=== PATIENT | female | born 1960 | race Caucasian/White ===

== ENCOUNTER → 2016-11-09 | Outpatient (CLI) | payer BC ==
--- NOTE | 2016-11-10 10:36 | MM ---
Reason for exam: screening (asymptomatic). Baseline mammogram. History: Patient is postmenopausal and has history of other cancer at age 30. Took hormonal contraceptives for 10 years. Physical Findings: Nurse did not find any significant physical abnormalities on exam. MG Screening Mammo w CAD Bilateral CC and MLO view(s) were taken. There are scattered fibroglandular densities. Finding #1: There are two 5 mm equal density (isodense), oval masses in the right breast. Finding #2: There are typically benign calcifications in the right breast. ASSESSMENT: Incomplete: need additional imaging evaluation, BI-RAD 0 RECOMMENDATION: Special view mammogram and ultrasound of the right breast. [facility] will attempt to contact patient to return for supplemental views and ultrasound.
== END | disposition home or self-care (01) ==
LOC: RADMAMWWP 13:23
PROVIDERS: ATTEND Family Medicine
DX: Z12.31 Encounter for screening mammogram for malignant neoplasm of breast (principal)

== ENCOUNTER → 2016-11-23 | Outpatient (CLI) | payer BC ==
--- NOTE | 2016-11-24 07:22 | MM ---
Reason for exam: additional evaluation requested from abnormal screening. Last mammogram was performed less than 1 month ago. History: Patient is postmenopausal and has history of other cancer at age 30. Took hormonal contraceptives for 10 years. Physical Findings: Breast exam preformed at baseline screening. MG Work Up Mamm w CAD RT LM and spot compression CC view(s) were taken of the right breast. Prior study comparison: November 09, 2016, bilateral MG screening mammo w CAD. There are scattered fibroglandular densities. Two circumscribed isodense 5mm nodules redemonstrated centrally inferior right breast. A 6 month follow up recommended. These results were verbally communicated with the patient and result sheet given to the patient on 11/23/16. ASSESSMENT: Probably benign, BI-RAD 3 RECOMMENDATION: Follow-up diagnostic mammogram of the right breast in 6 months.
== END | disposition home or self-care (01) ==
LOC: RADMAMWWP 14:40
PROVIDERS: ATTEND Family Medicine
DX: R92.8 Other abnormal and inconclusive findings on diagnostic imaging of breast (principal)

== ENCOUNTER → 2017-03-20 | Outpatient (CLI) | payer BC ==
--- NOTE | 2017-03-21 08:11 | WWHP ---
CHIEF COMPLAINT: The patient is here for her routine gynecologic exam. HPI: This is a 56-year-old G1, P1 with an LMP of 2008. She states it has been about 10 years since her last pelvic exam. She is without gynecologic complaints and denies any postmenopausal bleeding. PAST MEDICAL HISTORY: Chronic hypertension and hypothyroidism. MEDICATIONS: 1. Trazodone 100 mg at bedtime. 2. Amlodipine with benazepril 5/10 mg 1 daily. 3. Levothyroxine 75 mcg daily. ALLERGIES TO MORPHINE which caused pruritus and hives and AZITHROMYCIN, which caused heart racing. PAST SURGICAL HISTORY: Gastric bypass, cholecystectomy, left knee replacement surgery, partial thyroidectomy and section in the past. Colonoscopy was done in 2016. PAST OB HISTORY: One section. 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 Her does have a history of herpes but this well-controlled. SOCIAL HISTORY: She denies tobacco and drug use and has about 4 alcoholic drinks per week. She has been since 1997 and works at [employer]. She has 2 stepchildren. FAMILY HISTORY: Father had Parkinson disease. Mother had CHF. Several aunts and grandmother have hypertension. A brother and sister have diabetes. REVIEW OF SYSTEMS: She has lost about 20 pounds during the last year with diet. She denies respiratory, cardiac, or GI problems. PHYSICAL EXAM: Blood pressure 174/83. Height 5 feet 1-1/2 inches. Weight 165 pounds. Temperature 96.4, pulse 101. This a well-developed, well-nourished white female who is alert and oriented x3 in no acute distress. HEENT is within normal limits. NECK: Supple without mass or thyromegaly. CHEST AND LUNGS: Clear to auscultation. HEART: Mild tachycardia. Breasts are without mass or discharge. Axillary exam is negative for adenopathy. BACK: Negative for CVA tenderness. ABDOMEN: Soft, nontender, without palpable masses. PELVIC EXAM: External genitalia reveals mild atrophy without lesions. Cervix and vagina reveal mild atrophy without lesions. There is no evidence of prolapse. The uterus is midposition, nongravid size and nontender. There are no palpable adnexal masses or tenderness. Rectovaginal exam is for mass or tenderness and is negative for occult blood. EXTREMITIES: Nontender. IMPRESSION: 1. A 56-year-old menopausal female with normal gynecologic exam. 2. Elevated blood pressure with history of chronic hypertension. PLAN: 1. Pap smear was performed. 2. Self breast examination was discussed. 3. The patient had a mammogram in 11/21. A right-sided diagnostic mammogram was recommended in 6 months and an order slip was given to patient for this. She will do this in 05/21. 4. We discussed her elevated blood pressure. She states she did not take her blood pressure medicine today. She was advised to take this as soon as possible. She will do home blood pressure checks since she does have a blood pressure cuff. She will follow up with Dr. Byrd for blood pressure elevations. 5. Osteoporosis prevention was discussed. She states she had a bone density test scheduled on 03/24/2017. 6. She will return in one year.
== END | disposition home or self-care (01) ==
LOC: WWCWWP 13:12
PROVIDERS: ATTEND Obstetrics & Gynecology
DX: Z53.9 Procedure and treatment not carried out, unspecified reason (principal)

== ENCOUNTER → 2017-03-30 | Outpatient (CLI) | payer BC ==
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
== END | disposition home or self-care (01) ==
LOC: RADBDWWP 03-26 13:06
PROVIDERS: ATTEND Family Medicine
DX: Z13.820 Encounter for screening for osteoporosis (principal); M85.80 Other specified disorders of bone density and structure, unspecified site
CPT/HCPCS: 77080

== ENCOUNTER → 2017-06-15 | Outpatient (CLI) | payer BC ==
--- NOTE | 2017-06-15 15:54 | CT ---
EXAMINATION TYPE: CT chest w con DATE OF EXAM: 06/15/2017 COMPARISON: CT chest May 03, 2016. HISTORY: Nodule follow up CT DLP: 403.7 mGycm. Automated Exposure Control for Dose Reduction was Utilized. TECHNIQUE: CT scan of the thorax is performed following with IV Contrast, patient injected with 100 mL of Omnipaque 300. FINDINGS: LUNGS: There is persistent 4 x 3 mm subpleural nodule in the right middle lobe on axial image 33 unch anged from prior. The lungs are grossly clear, there is no new greater than 5 mm concerning noncalcif ied parenchymal mass or nodule identified. There is no pleural effusion or pneumothorax seen bilate rally. The tracheobronchial tree is patent. MEDIASTINUM: There are no greater than 1 cm hilar or mediastinal lymph nodes. No cardiomegaly or pe ricardial effusion is seen. Ascending aorta measures 3.8 cm in diameter on axial image 26 felt stabl e. OTHER: No additional significant abnormality is seen. Surgical changes from gastric bypass procedure are redemonstrated and epigastric region. Liver is low dense consistent with fatty infiltration. Cho lecystectomy clips are redemonstrated. A splenule in the splenic hilum is again seen. There may be ti ny fat-containing ventral wall hernia near image 55 felt stable. IMPRESSION: Stable under 5 mm nodule. No new greater than 6 mm nodules or masses identified. No furth er follow-up necessary as per modified Fleischner Society recommendations.
== END | disposition home or self-care (01) ==
LOC: RADCTMAIN 13:31
PROVIDERS: ATTEND Internal Medicine Critical Care Medicine
DX: R91.1 Solitary pulmonary nodule (principal)
CPT/HCPCS: 71260; Q9967

== ENCOUNTER → 2017-07-11 | Outpatient (CLI) | payer BC ==
--- NOTE | 2017-07-11 14:55 | MM ---
Reason for exam: follow-up at short interval from prior study. Last mammogram was performed 8 months ago. History: Patient is postmenopausal and has history of other cancer at age 30. Took hormonal contraceptives for 10 years. Physical Findings: Nurse did not find any significant physical abnormalities on exam. MG Diagnostic Mammo RT w CAD CC and MLO view(s) were taken of the right breast. Prior study comparison: November 23, 2016, right breast MG work up mamm w CAD RT. November 09, 2016, bilateral MG screening mammo w CAD. The breast tissue is almost entirely fat. No significant new findings when compared with previous films. These results were verbally communicated with the patient and result sheet given to the patient on 07/11/17. ASSESSMENT: Benign, BI-RAD 2 RECOMMENDATION: Return to routine screening mammogram schedule for both breasts. Back on schedule for November 2017.
== END | disposition home or self-care (01) ==
LOC: RADMAMWWP 14:15
PROVIDERS: ATTEND Family Medicine
DX: R92.8 Other abnormal and inconclusive findings on diagnostic imaging of breast (principal)

== ENCOUNTER 2017-12-07 11:06 | Emergency (ER) | payer BC ==
[2017-12-07 11:32] VITALS: RESP 18
[2017-12-07] MEDS ORDERED: ONDANSETRON 4 MG/2 ML VIAL IVP STA (13:20)
[2017-12-07] MEDS ORDERED: SODIUM CHLORIDE 0.9% 1,000 ML IV ONE (13:20)
[2017-12-07] MEDS ORDERED: RX INFO: IV CONTRAST WAS GIVEN 1 EACH MISC MISCELLANE PRN (13:20)
[2017-12-07 13:34] LABS: Basophils % (A) 0 %; Eosinophils % (A) 1 %; HCT 44.9 % (34.0-46.0); HGB 14.6 gm/dL (11.4-16.0); Lymphocytes # (A) 0.7 k/uL (1.0-4.8); Lymphocytes % (A) 17 %; MCH 33.8 pg (25.0-35.0); MCHC 32.6 g/dL (31.0-37.0); MCV 103.6 fL (80.0-100.0); Macrocytosis Slight; Mean Platelet Volume 7.5; Monocytes # (A) 0.3 k/uL (0-1.0); Monocytes % (A) 9 %; Neutrophils # (A) 2.7 k/uL (1.3-7.7); Neutrophils % (A) 70 %; Platelet Count 141 k/uL (150-450); RBC 4.33 m/uL (3.80-5.40); RDW 13.6 % (11.5-15.5); WBC 3.8 k/uL (3.8-10.6)
[2017-12-07 13:45] LABS: ALT 164 U/L (9-52); AST 309 U/L (14-36); Albumin 3.7 g/dL (3.5-5.0); Alkaline Phosphatase 263 U/L (38-126); Anion Gap 8 mmol/L; Blood Urea Nitrogen 6 mg/dL (7-17); Calcium 9.8 mg/dL (8.4-10.2); Carbon Dioxide 27 mmol/L (22-30); Chloride 102 mmol/L (98-107); Glucose 134 mg/dL (74-99); Lipase 137 U/L (23-300); Potassium 4.3 mmol/L (3.5-5.1); Sodium 137 mmol/L (137-145); Total Protein 6.5 g/dL (6.3-8.2)
[2017-12-07 13:48] LABS: Appearance,Urine Cloudy (Clear); Bacteria,Urine Rare /hpf; Bilirubin,Urine 1+ (Negative); Blood,Urine Negative (Negative); Calcium Oxalate Crystals,Urine Many /hpf; Color,Urine Light Brown; Glucose,Urine (UA) Negative (Negative); Ketones,Urine 1+ (Negative); Leukocyte Esterase,Urine Small (Negative); Mucus,Urine Many /hpf; Nitrite,Urine Negative (Negative); Protein,Urine 2+ (Negative); RBC,Urine 6 /hpf (0-5); Specific Gravity,Urine 1.025 (1.001-1.035); Squamous Epithelial Cell,Urine 71 /hpf (0-4); Urobilinogen,Urine >12.0 mg/dL (<2.0); WBC,Urine 7 /hpf (0-5)
--- NOTE | 2017-12-07 14:23 | CT ---
EXAMINATION TYPE: CT abdomen pelvis w con DATE OF EXAM: 12/07/2017 COMPARISON: 04/20/2015 INDICATION: Patient complains of LUQ pain and nausea. DLP: 1510 mGycm, Automated exposure control for dose reduction was used. CONTRAST: 100 mL of Omnipaque 300. Study performed with Oral Contrast TECHNIQUE: Axial images were obtained from above the diaphragm to the pubic rami in the axial plane a t 5 mm thick sections. Reconstructed images are reviewed on the computer in the coronal plane. FINDINGS: Limited CT sections are obtained the lung bases. Previous density within the anterior peripheral rig ht middle lobe may be smaller than comparison study.. CT ABDOMEN: Liver: There is moderate fatty infiltration liver. No discrete masses are evident. Spleen: Normal Pancreas: Atrophic Adrenal glands: The adrenal glands are normal. Gallbladder: Surgically absent Kidneys: No masses are evident. No hydronephrosis is present. No cysts are present. Delayed images were obtained through the kidneys, which remain unremarkable. Aorta: Vascular calcification is within the aorta. Inferior vena cava: Normal. CT PELVIS: Loops of bowel within the abdomen and pelvis are normal. Postsurgical changes are within the stom ach. Study is performed without oral contrast limiting the evaluation. Appendix: Normal as visualized. Urinary bladder: Decompressed with limited evaluation Genitourinary structures: Uterus is normal. Adnexal regions are normal. Osseous structures: No suspicious lytic or sclerotic lesions. Some facet degenerative changes within the lower lumbar spine. IMPRESSIONS: 1. No acute abdominal process. 2. Moderate fatty infiltration liver. 3. No suspicious changes to account for left upper quadrant pain
--- NOTE | 2017-12-07 16:10 | ED ---
General Adult HPI - General Chief complaint: Abdominal Pain Stated complaint: Abd Pain Time Seen by Provider: 12/07/17 12:39 Source: patient Mode of arrival: ambulatory Limitations: no limitations - History of Present Illness Initial comments: 57-year-old female presenting for evaluation of abdominal pain, fatigue, nausea, vomiting for the last 2 weeks with associated diarrhea. She states a past medical history of gastric bypass. Denies contacts with similar symptoms. No suspicious food intake. Denies changes in medications. No other associated symptoms. - Related Data Home Medications Medication Instructions Recorded Confirmed Biotin 5 mg PO DAILY 12/07/17 12/07/17 Cholecalciferol [Vitamin D3] 1,000 unit PO DAILY 12/07/17 12/07/17 Ferrous Sulfate [Iron] 325 mg PO DAILY 12/07/17 12/07/17 Levothyroxine Sodium [Synthroid] 75 mcg PO DAILY 12/07/17 12/07/17 Multivitamins, Thera [Multivitamin 1 tab PO DAILY 12/07/17 12/07/17 (formulary)] Magnolia-3 Fatty Acids/Fish Oil [Fish 1 cap PO DAILY 12/07/17 12/07/17 Oil 1,000 mg Softgel] amLODIPine BESYLATE/BENAZEPRIL 1 cap PO DAILY 12/07/17 12/07/17 [amLODIPine BESYLATE/BENAZEPRIL 5-10 mg] Previous Rx's Medication Instructions Recorded Ondansetron Odt [Zofran Odt] 4 mg PO Q12HR PRN #14 tab 12/07/17 Allergies Allergy/AdvReac Type Severity Reaction Status Date / Time azithromycin Allergy Rash/Hives Verified 12/07/17 12:42 [From Zithromax Z-Rashaad] morphine Allergy Rapid Verified 12/07/17 12:42 Heart Rate Review of Systems ROS Statement: Those systems with pertinent positive or pertinent negative responses have been documented in the HPI. ROS Other: All systems not noted in ROS Statement are negative. Constitutional: Reports: chills. Denies: fever Eyes: Denies: eye pain, eye discharge, vision change ENT: Denies: ear pain, throat pain Respiratory: Denies: cough, dyspnea Cardiovascular: Denies: chest pain, palpitations, syncope Endocrine: Denies: fatigue, polydipsia, polyuria Gastrointestinal: Reports: abdominal pain, nausea. Denies: vomiting, diarrhea, constipation Genitourinary: Denies: urgency, dysuria Musculoskeletal: Denies: back pain, arthralgia, myalgia Skin: Denies: rash, lesions Neurological: Denies: headache, weakness Psychiatric: Denies: anxiety, depression Hematological/Lymphatic: Denies: easy bleeding, easy bruising Past Medical History Past Medical History: Hypertension, Thyroid Disorder History of Any Multi-Drug Resistant Organisms: None Reported Past Surgical History: Section, Cholecystectomy Additional Past Surgical History / Comment(s): Knee, Gastric bypass, thyroid Past Psychological History: Anxiety, Depression Smoking Status: Never smoker Past Alcohol Use History: Occasional Past Drug Use History: None Reported General Exam Limitations: no limitations General appearance: alert, in no apparent distress Head exam: Present: atraumatic, normocephalic, normal inspection Eye exam: Present: normal appearance, PERRL, EOMI. Absent: scleral icterus, conjunctival injection, periorbital swelling ENT exam: Present: normal exam, mucous membranes moist Neck exam: Present: normal inspection. Absent: tenderness, meningismus, lymphadenopathy Respiratory exam: Present: normal lung sounds bilaterally. Absent: respiratory distress, wheezes, rales, rhonchi, stridor Cardiovascular Exam: Present: regular rate, normal rhythm, normal heart sounds. Absent: systolic murmur, diastolic murmur, rubs, gallop, clicks GI/Abdominal exam: Present: soft, normal bowel sounds. Absent: distended, tenderness, guarding, rebound, rigid Rectal exam: Present: deferred Extremities exam: Present: normal inspection, full ROM, normal capillary refill. Absent: tenderness, pedal edema, joint swelling, calf tenderness Back exam: Present: normal inspection Neurological exam: Present: alert, oriented X3, CN II-XII intact Psychiatric exam: Present: normal affect, normal mood Skin exam: Present: warm, dry, intact, normal color. Absent: rash Course Vital Signs 12/07/17 12/07/17 12/07/17 11:28 12:52 13:33 Temperature 97.7 F 98.5 F Pulse Rate 86 75 Respiratory 18 18 Rate Blood Pressure 173/86 134/81 O2 Sat by Pulse 99 97 Oximetry 12/07/17 12/07/17 14:48 16:42 Temperature 98.0 F Pulse Rate 83 96 Respiratory 18 18 Rate Blood Pressure 157/73 134/82 O2 Sat by Pulse 100 98 Oximetry Medical Decision Making - Medical Decision Making 57-year-old male presented for evaluation of abdominal pain, nausea, and vomiting for the last 2 weeks. On physical examination her abdomen is soft without peritoneal signs of guarding, rigidity, rebound. Remainder of physical exam is benign. Labs are obtained which showed a mild lactic acidosis of 2.2 and transaminitis as well as a urinalysis that shows calcium oxalate crystals and large amounts of squamous epithelial cells making the urinalysis contaminated. Lactic acid was repeated and returned to normal. CT abdomen and pelvis showed no acute process. Patient was reevaluated and had improvement in her symptoms. She was informed of all results and through shared decision making it was determined that she would be discharged with instructions to follow-up with primary care physician but to return to this facility if her symptoms should worsen or persist. The patient acknowledged an understanding of all formation provided and agreed with this plan of care. - Lab Data Result diagrams: 12/07/17 13:05 12/07/17 13:05 Lab Results 12/07/17 12/07/17 12/07/17 Range/Units 13:05 13:05 13:05 WBC 3.8 (3.8-10.6) k/uL RBC 4.33 (3.80-5.40) m/uL Hgb 14.6 (11.4-16.0) gm/dL Hct 44.9 (34.0-46.0) % MCV 103.6 H (80.0-100.0) fL MCH 33.8 (25.0-35.0) pg MCHC 32.6 (31.0-37.0) g/dL RDW 13.6 (11.5-15.5) % Plt Count 141 L (150-450) k/uL Neutrophils % 70 % Lymphocytes % 17 % Monocytes % 9 % Eosinophils % 1 % Basophils % 0 % Neutrophils # 2.7 (1.3-7.7) k/uL Lymphocytes # 0.7 L (1.0-4.8) k/uL Monocytes # 0.3 (0-1.0) k/uL Eosinophils # 0.0 (0-0.7) k/uL Basophils # 0.0 (0-0.2) k/uL Macrocytosis Slight Sodium 137 (137-145) mmol/L Potassium 4.3 (3.5-5.1) mmol/L Chloride 102 (98-107) mmol/L Carbon Dioxide 27 (22-30) mmol/L Anion Gap 8 mmol/L BUN 6 L (7-17) mg/dL Creatinine 0.64 (0.52-1.04) mg/dL Est GFR (MDRD) Af Amer >60 (>60 ml/min/1.73 sqM) Est GFR (MDRD) Non-Af >60 (>60 ml/min/1.73 sqM) Glucose 134 H (74-99) mg/dL Lactic Ac Sepsis Rflx Plasma Lactic Acid Isai (0.7-2.0) mmol/L Calcium 9.8 (8.4-10.2) mg/dL Total Bilirubin 1.0 (0.2-1.3) mg/dL AST 309 H (14-36) U/L ALT 164 H (9-52) U/L Alkaline Phosphatase 263 H (38-126) U/L Total Protein 6.5 (6.3-8.2) g/dL Albumin 3.7 (3.5-5.0) g/dL Lipase 137 (23-300) U/L Urine Color Light Brown Urine Appearance Cloudy H (Clear) Urine pH 7.0 (5.0-8.0) Ur Specific [place] 1.025 (1.001-1.035) Urine Protein 2+ H (Negative) Urine Glucose (UA) Negative (Negative) Urine Ketones 1+ H (Negative) Urine Blood Negative (Negative) Urine Nitrite Negative (Negative) Urine Bilirubin 1+ H (Negative) Urine Urobilinogen >12.0 (<2.0) mg/dL Ur Leukocyte Esterase Small H (Negative) Urine RBC 6 H (0-5) /hpf Urine WBC 7 H (0-5) /hpf Ur Squamous Epith Cells 71 H (0-4) /hpf Calcium Oxalate Crystal Many H (None) /hpf Urine Bacteria Rare H (None) /hpf Urine Mucus Many H (None) /hpf 12/07/17 12/07/17 12/07/17 Range/Units 13:05 14:30 15:29 WBC (3.8-10.6) k/uL RBC (3.80-5.40) m/uL Hgb (11.4-16.0) gm/dL Hct (34.0-46.0) % MCV (80.0-100.0) fL MCH (25.0-35.0) pg MCHC (31.0-37.0) g/dL RDW (11.5-15.5) % Plt Count (150-450) k/uL Neutrophils % % Lymphocytes % % Monocytes % % Eosinophils % % Basophils % % Neutrophils # (1.3-7.7) k/uL Lymphocytes # (1.0-4.8) k/uL Monocytes # (0-1.0) k/uL Eosinophils # (0-0.7) k/uL Basophils # (0-0.2) k/uL Macrocytosis Sodium (137-145) mmol/L Potassium (3.5-5.1) mmol/L Chloride (98-107) mmol/L Carbon Dioxide (22-30) mmol/L Anion Gap mmol/L BUN (7-17) mg/dL Creatinine (0.52-1.04) mg/dL Est GFR (MDRD) Af Amer (>60 ml/min/1.73 sqM) Est GFR (MDRD) Non-Af (>60 ml/min/1.73 sqM) Glucose (74-99) mg/dL Lactic Ac Sepsis Rflx Y Plasma Lactic Acid Isai 2.2 H* 1.2 (0.7-2.0) mmol/L Calcium (8.4-10.2) mg/dL Total Bilirubin (0.2-1.3) mg/dL AST (14-36) U/L ALT (9-52) U/L Alkaline Phosphatase (38-126) U/L Total Protein (6.3-8.2) g/dL Albumin (3.5-5.0) g/dL Lipase (23-300) U/L Urine Color Urine Appearance (Clear) Urine pH (5.0-8.0) Ur Specific [place] (1.001-1.035) Urine Protein (Negative) Urine Glucose (UA) (Negative) Urine Ketones (Negative) Urine Blood (Negative) Urine Nitrite (Negative) Urine Bilirubin (Negative) Urine Urobilinogen (<2.0) mg/dL Ur Leukocyte Esterase (Negative) Urine RBC (0-5) /hpf Urine WBC (0-5) /hpf Ur Squamous Epith Cells (0-4) /hpf Calcium Oxalate Crystal (None) /hpf Urine Bacteria (None) /hpf Urine Mucus (None) /hpf Disposition Clinical Impression: Nausea and vomiting, Abdominal pain Disposition: HOME SELF-CARE Condition: Stable Instructions: Abdominal Pain (ED) Additional Instructions: Please use medication as discussed. Please follow up with family doctor if symptoms have not improved over the next two days. Please return to the emergency room if your symptoms increase or worsen or for any other concerns. Prescriptions: Ondansetron Odt [Zofran Odt] 4 mg PO Q12HR PRN #14 tab PRN Reason: nausea Referrals: Jarrod Byrd DO [Primary Care Provider] - 1-2 days Time of Disposition: 16:10
[2017-12-07 16:43] VITALS: BP 134/82; PULSE 96; TEMP 98
== END 2017-12-07 16:43 | disposition home or self-care (01) ==
LOC: EC 11:06
DX: R11.2 Nausea with vomiting, unspecified (principal); R10.9 Unspecified abdominal pain; R74.0 Nonspecific elevation of levels of transaminase and lactic acid dehydrogenase [LDH]; R82.99 Other abnormal findings in urine; R19.7 Diarrhea, unspecified; I10 Essential (primary) hypertension; E07.9 Disorder of thyroid, unspecified; Z79.899 Other long term (current) drug therapy; Z88.1 Allergy status to other antibiotic agents; Z88.5 Allergy status to narcotic agent; Z90.49 Acquired absence of other specified parts of digestive tract; Z98.84 Bariatric surgery status
CPT/HCPCS: 36415; 80053; 83605; 83690; 85025; 81001; 74177; 99284; 96374; 96361 ×3; J2405; Q9967

== ENCOUNTER 2018-02-25 05:27 | Observation (INO) | payer BC ==
[2018-02-25] MEDS ORDERED: SODIUM CHLORIDE 0.9% 500 ML IV STA (05:34)
[2018-02-25 05:48] LABS: Basophils % (A) 0 %; Eosinophils # (A) 0.1 k/uL (0-0.7); Eosinophils % (A) 1 %; HCT 47.3 % (34.0-46.0); HGB 15.4 gm/dL (11.4-16.0); Lymphocytes # (A) 1.5 k/uL (1.0-4.8); Lymphocytes % (A) 32 %; MCH 31.8 pg (25.0-35.0); MCHC 32.5 g/dL (31.0-37.0); MCV 97.9 fL (80.0-100.0); Mean Platelet Volume 7.4; Monocytes # (A) 0.5 k/uL (0-1.0); Monocytes % (A) 10 %; Neutrophils # (A) 2.5 k/uL (1.3-7.7); Neutrophils % (A) 53 %; Platelet Count 218 k/uL (150-450); RBC 4.83 m/uL (3.80-5.40); RDW 13.2 % (11.5-15.5); WBC 4.8 k/uL (3.8-10.6)
--- NOTE | 2018-02-25 05:48 | ED ---
General Adult HPI - General Chief complaint: Chest Pain Stated complaint: chest pain Time Seen by Provider: 02/25/18 05:27 Source: patient, RN notes reviewed, old records reviewed Mode of arrival: wheelchair Limitations: no limitations - History of Present Illness Initial comments: 57-year-old female presents for evaluation of chest pain. Patient has had anterior chest pressure for the past 24 hours. She has had some waxing and waning symptoms, pain seems to come and go. Does radiate to her left shoulder. She also describes some nausea without significant vomiting. No URI symptoms. No history of fever. She has had a mild cough. Denies any pain in her legs or lower extremity swelling. She has no known history of CAD. No history of DVT or PE. Patient is a nonsmoker. History of hypertension, and hypothyroidism. Patient has some mild pain at the time my evaluation. - Related Data Home Medications Medication Instructions Recorded Confirmed Biotin 5 mg PO DAILY 12/07/17 02/25/18 Cholecalciferol [Vitamin D3] 1,000 unit PO DAILY 12/07/17 02/25/18 Ferrous Sulfate [Iron] 325 mg PO DAILY 12/07/17 02/25/18 Levothyroxine Sodium [Synthroid] 75 mcg PO DAILY 12/07/17 02/25/18 Multivitamins, Thera [Multivitamin 1 tab PO DAILY 12/07/17 02/25/18 (formulary)] [place]-3 Fatty Acids/Fish Oil [Fish 1 cap PO DAILY 12/07/17 02/25/18 Oil 1,000 mg Softgel] amLODIPine BESYLATE/BENAZEPRIL 1 cap PO DAILY 12/07/17 02/25/18 [amLODIPine BESYLATE/BENAZEPRIL 5-10 mg] Previous Rx's Medication Instructions Recorded Ondansetron Odt [Zofran Odt] 4 mg PO Q12HR PRN #14 tab 12/07/17 Allergies Allergy/AdvReac Type Severity Reaction Status Date / Time azithromycin Allergy Rash/Hives Verified 12/07/17 12:42 [From Zithromax Z-Rashaad] morphine Allergy Rapid Verified 12/07/17 12:42 Heart Rate Review of Systems ROS Statement: Those systems with pertinent positive or pertinent negative responses have been documented in the HPI. ROS Other: All systems not noted in ROS Statement are negative. Past Medical History Past Medical History: Hypertension, Thyroid Disorder History of Any Multi-Drug Resistant Organisms: None Reported Past Surgical History: Section, Cholecystectomy Additional Past Surgical History / Comment(s): Knee, Gastric bypass, thyroid Past Psychological History: Anxiety, Depression Smoking Status: Never smoker Past Alcohol Use History: Occasional Past Drug Use History: None Reported General Exam Limitations: no limitations General appearance: alert, in no apparent distress Head exam: Present: atraumatic, normocephalic Eye exam: Present: normal appearance, PERRL ENT exam: Present: normal exam Neck exam: Present: normal inspection. Absent: tenderness, meningismus Respiratory exam: Present: normal lung sounds bilaterally. Absent: respiratory distress, wheezes Cardiovascular Exam: Present: normal rhythm, tachycardia GI/Abdominal exam: Present: soft. Absent: distended, tenderness, guarding Extremities exam: Present: normal inspection, normal capillary refill. Absent: pedal edema, calf tenderness Neurological exam: Present: alert, oriented X3, CN II-XII intact. Absent: motor sensory deficit Psychiatric exam: Present: anxious Skin exam: Present: warm, dry, intact. Absent: cyanosis, diaphoretic Course Vital Signs 02/25/18 02/25/18 02/25/18 05:28 06:01 06:48 Temperature 97.1 F L Pulse Rate 146 H 103 H 100 Respiratory 22 18 18 Rate Blood Pressure 138/99 145/85 150/81 O2 Sat by Pulse 99 100 99 Oximetry EKG Findings - EKG Comments: EKG Findings:: EKG: Sinus tachycardia, possible left atrial enlargement, rate of 117, OR interval 134 over QRS duration 90, QTC 454, no ST segment elevation Medical Decision Making - Medical Decision Making 57-year-old female presenting with central chest pressure and radiation to the left shoulder. Patient does appear anxious however her symptoms are concerning for ACS. Laboratory studies reveal normal CBC, AST ALT and alk phos are elevated although this appears chronic. Troponin is negative. Chest x-ray shows no acute disease. D-dimer is negative at 0.47. Patient is given aspirin , started on heparin. She will be admitted for serial cardiac enzymes. Case discussed with Dr. balderas, who will accept the patient for Dr. Byrd. - Lab Data Result diagrams: 02/25/18 05:35 02/25/18 05:35 Lab Results 04/23/18 04/23/18 04/23/18 Range/Units 05:35 05:35 05:35 WBC 4.8 (3.8-10.6) k/uL RBC 4.83 (3.80-5.40) m/uL Hgb 15.4 (11.4-16.0) gm/dL Hct 47.3 H (34.0-46.0) % MCV 97.9 (80.0-100.0) fL MCH 31.8 (25.0-35.0) pg MCHC 32.5 (31.0-37.0) g/dL RDW 13.2 (11.5-15.5) % Plt Count 218 (150-450) k/uL Neutrophils % 53 % Lymphocytes % 32 % Monocytes % 10 % Eosinophils % 1 % Basophils % 0 % Neutrophils # 2.5 (1.3-7.7) k/uL Lymphocytes # 1.5 (1.0-4.8) k/uL Monocytes # 0.5 (0-1.0) k/uL Eosinophils # 0.1 (0-0.7) k/uL Basophils # 0.0 (0-0.2) k/uL PT (9.0-12.0) sec INR (<1.2) APTT (22.0-30.0) sec D-Dimer (<0.60) mg/L FEU Sodium 141 (137-145) mmol/L Potassium 3.9 (3.5-5.1) mmol/L Chloride 101 (98-107) mmol/L Carbon Dioxide 20 L (22-30) mmol/L Anion Gap 20 mmol/L BUN 4 L (7-17) mg/dL Creatinine 0.60 (0.52-1.04) mg/dL Est GFR (CKD-EPI)AfAm >90 (>60 ml/min/1.73 sqM) Est GFR (CKD-EPI)NonAf >90 (>60 ml/min/1.73 sqM) Glucose 110 H (74-99) mg/dL Calcium 10.4 H (8.4-10.2) mg/dL Magnesium 2.1 (1.6-2.3) mg/dL Total Bilirubin 0.9 (0.2-1.3) mg/dL AST 320 H (14-36) U/L ALT 146 H (9-52) U/L Alkaline Phosphatase 319 H (38-126) U/L Total Creatine Kinase 43 (30-135) U/L CK-MB (CK-2) 0.4 (0.0-2.4) ng/mL CK-MB (CK-2) Rel Index 0.9 Troponin I <0.012 (0.000-0.034) ng/mL NT-Pro-B Natriuret Pep pg/mL Total Protein 7.9 (6.3-8.2) g/dL Albumin 4.7 (3.5-5.0) g/dL Lipase 287 (23-300) U/L TSH 2.650 (0.465-4.680) mIU/L 02/25/18 02/25/18 Range/Units 05:35 05:35 WBC (3.8-10.6) k/uL RBC (3.80-5.40) m/uL Hgb (11.4-16.0) gm/dL Hct (34.0-46.0) % MCV (80.0-100.0) fL MCH (25.0-35.0) pg MCHC (31.0-37.0) g/dL RDW (11.5-15.5) % Plt Count (150-450) k/uL Neutrophils % % Lymphocytes % % Monocytes % % Eosinophils % % Basophils % % Neutrophils # (1.3-7.7) k/uL Lymphocytes # (1.0-4.8) k/uL Monocytes # (0-1.0) k/uL Eosinophils # (0-0.7) k/uL Basophils # (0-0.2) k/uL PT 10.3 (9.0-12.0) sec INR 1.0 (<1.2) APTT 23.1 (22.0-30.0) sec D-Dimer 0.47 (<0.60) mg/L FEU Sodium (137-145) mmol/L Potassium (3.5-5.1) mmol/L Chloride (98-107) mmol/L Carbon Dioxide (22-30) mmol/L Anion Gap mmol/L BUN (7-17) mg/dL Creatinine (0.52-1.04) mg/dL Est GFR (CKD-EPI)AfAm (>60 ml/min/1.73 sqM) Est GFR (CKD-EPI)NonAf (>60 ml/min/1.73 sqM) Glucose (74-99) mg/dL Calcium (8.4-10.2) mg/dL Magnesium (1.6-2.3) mg/dL Total Bilirubin (0.2-1.3) mg/dL AST (14-36) U/L ALT (9-52) U/L Alkaline Phosphatase (38-126) U/L Total Creatine Kinase (30-135) U/L CK-MB (CK-2) (0.0-2.4) ng/mL CK-MB (CK-2) Rel Index Troponin I (0.000-0.034) ng/mL NT-Pro-B Natriuret Pep 73 pg/mL Total Protein (6.3-8.2) g/dL Albumin (3.5-5.0) g/dL Lipase (23-300) U/L TSH (0.465-4.680) mIU/L Disposition Clinical Impression: Unstable angina pectoris Disposition: HOME SELF-CARE Condition: Serious Is patient prescribed a controlled substance at d/c from ED?: No Referrals: Jarrod Byrd DO [Primary Care Provider] - 1-2 days Decision to Admit Reason: Admit from EC Decision Date: 02/25/18 Decision Time: 06:58
[2018-02-25 05:57] LABS: ALT 146 U/L (9-52); AST 320 U/L (14-36); Albumin 4.7 g/dL (3.5-5.0); Alkaline Phosphatase 319 U/L (38-126); Anion Gap 20 mmol/L; Blood Urea Nitrogen 4 mg/dL (7-17); Calcium 10.4 mg/dL (8.4-10.2); Carbon Dioxide 20 mmol/L (22-30); Chloride 101 mmol/L (98-107); Glucose 110 mg/dL (74-99); Lipase 287 U/L (23-300); Magnesium 2.1 mg/dL (1.6-2.3); Potassium 3.9 mmol/L (3.5-5.1); Sodium 141 mmol/L (137-145); Total Bilirubin 0.9 mg/dL (0.2-1.3); Total Protein 7.9 g/dL (6.3-8.2)
[2018-02-25 06:02] LABS: D-Dimer 0.47 mg/L FEU (<0.60); Partial Thromboplastin Time 23.1 sec (22.0-30.0); Prothrombin Time 10.3 sec (9.0-12.0)
--- NOTE | 2018-02-25 06:08 | XR ---
EXAM: XR Chest, 2 Views CLINICAL HISTORY: Chest Pain TECHNIQUE: Frontal and lateral views of the chest. COMPARISON: No relevant prior studies available. FINDINGS: Lungs: No evidence for infiltrates No consolidation.. No abnormal mass Pleural space: Unremarkable. No pneumothorax. Heart: Cardiac silhouette within normal limits. Mediastinum: Unremarkable. Bones/joints: Unremarkable. IMPRESSION: Unremarkable 2 views of the chest
[2018-02-25 06:19] LABS: Creatine Kinase 43 U/L (30-135)
[2018-02-25] MEDS ORDERED: ASPIRIN 325 MG TAB PO STA (06:24)
[2018-02-25] MEDS ORDERED: HEPARIN SODIUM,PORCINE 5,000 UNIT/ML 1 ML VIAL IV PRN (06:28)
[2018-02-25] MEDS ORDERED: HEPARIN SODIUM,PORCINE 5,000 UNIT/ML 1 ML VIAL IV ONE (06:28)
[2018-02-25] MEDS ORDERED: HEPARIN SOD,PORK IN 0.45% NACL 25,000 UNIT in 0.45% NACL 1 500ML.BAG IV SCH (06:30)
[2018-02-25 06:32] LABS: Creatine Kinase MB 0.4 ng/mL (0.0-2.4); Troponin I <0.012 ng/mL (0.000-0.034)
[2018-02-25] MEDS ORDERED: LORazepam 2 MG/ML INJ IV STA (06:43)
[2018-02-25] MEDS ORDERED: NALOXONE 0.4 MG/ML 1 ML VIAL IV PRN (06:48)
[2018-02-25 08:33] VITALS: RESP 16
--- NOTE | 2018-02-25 09:50 | P.CRDCN ---
History of Present Illness Consult date: 02/25/18 History of present illness: Mrs. Milton is a pleasant 57-year-old female past medical history significant for hypertension, thyroid cancer s/p thyroidectomy and chronic daily alcohol use. She denies history of coronary artery disease and has never seen a pastrycook for any reason. We have been asked to see her in consultation for chest pain. She states she woke up yesterday feeling a pressure type pain in her chest starting in the mid-sternal region radiating over to the left shoulder and axilla. The pain is associated with shortness of breath, palpitations and nausea. She also described increased fatigue and loss of appetite that has been slowly ongoing for the last month or so. The pressure in her chest has been ongoing since admission with no specific alleviating or aggravating factors. The pain intensity has subsided but the pressure still there in the chest. EKG reveals sinus tachycardia with bi-atrial enlargement, heart rate 117. Telemetry tracings have been unremarkable for arrhythmia other than tachycardia. Chest xray negative for an acute cardiopulmonary process. Laboratory data reviewed, hemoglobin 15.4, platelets 218, potassium 3.9, magnesium 2.1, AST 320, PLT 146, alk phos 319, cardiac enzymes negative 1, TSH 2.65. Current cardiac medications include amlodipine/benazepril 5/10 mg daily. Review of Systems At the time of my exam: CONSTITUTIONAL: Denies fever. Denies chills. EYES: Denies blurred vision. Denies vision changes. Denies eye pain. EARS, NOSE, MOUTH & THROAT: Denies headache. Denies sore throat. Denies ear pain. CARDIOVASCULAR: Complains of intermittent chest pain. Denies shortness of breath. Denies orthopnea. Denies PND. Denies palpitations. RESPIRATORY: Denies cough. GASTROINTESTINAL: Denies abdominal pain. Denies diarrhea. Denies constipation. Complains of nausea. Denies vomiting. MUSCULOSKELETAL: Denies myalgias. INTEGUMENTARY: Denies pruitis. Denies rash. NEUROLOGIC: Denies numbness. Denies tingling. Denies weakness. PSYCHIATRIC: Denies anxiety. Denies depression. ENDOCRINE: Complains of fatigue. Denies weight change. Denies polydipsia. Denies polyurina. Complains of decreased appetite. GENITOURINARY: Denies burning, hematuria or urgency with micturation. HEMATOLOGIC: Denies history of anemia. Denies bleeding. Past Medical History Past Medical History: Cancer, Hypertension, Osteoarthritis (OA), Thyroid Disorder Additional Past Medical History / Comment(s): Thyroid cancer surgically removed , arthritis multiple joints, environmental sinus problems, iron deficiency anemia, past cellulitis R foot. History of Any Multi-Drug Resistant Organisms: None Reported Past Surgical History: Section, Cholecystectomy, Joint Replacement, Orthopedic Surgery Additional Past Surgical History / Comment(s): Gastric bypass, total L knee arthroplasty, parathyroidectomy, R hand benign tumor removed, colonoscopy- normal. Past Anesthesia/Blood Transfusion Reactions: No Reported Reaction Additional Past Anesthesia/Blood Transfusion Reaction / Comment(s): Pt has received blood in the past without reaction. Pt is clausterphobic. Smoking Status: Never smoker - Past Family History Father Family Medical History: Cancer, Diabetes Mellitus, Hypertension, Musculoskeletal Disorder, Neurologic Disorder Additional Family Medical History / Comment(s): Father of parkinson's dx at the age of 68yrs. He had skin cancer. Mother Family Medical History: Congestive Heart Failure (CHF), Hypertension Additional Family Medical History / Comment(s): Mother from CHF at the age of 61yrs. Medications and Allergies Home Medications Medication Instructions Recorded Confirmed Type Levothyroxine Sodium [Synthroid] 75 mcg PO DAILY 12/07/17 02/25/18 History Multivitamins, Thera [Multivitamin 1 tab PO DAILY 12/07/17 02/25/18 History (formulary)] amLODIPine BESYLATE/BENAZEPRIL 1 cap PO DAILY 12/07/17 02/25/18 History [amLODIPine BESYLATE/BENAZEPRIL 5-10 mg] traZODone HCL 50 mg PO HS PRN 02/25/18 02/25/18 History Allergies Allergy/AdvReac Type Severity Reaction Status Date / Time azithromycin Allergy Rash/Hives Verified 12/07/17 12:42 [From Zithromax Z-Rashaad] morphine Allergy Rapid Verified 12/07/17 12:42 Heart Rate Physical Exam Vitals: Vital Signs Temp Pulse Resp BP Pulse Ox 02/25/18 06:48 100 18 150/81 99 02/25/18 06:01 103 H 18 145/85 100 02/25/18 05:28 97.1 F L 146 H 22 138/99 99 Intake and Output 02/24/18 02/25/18 02/25/18 22:59 06:59 14:59 Other: Weight 68.946 kg Blood pressure 150/81 heart rate 100 afebrile maintaining oxygen saturation GENERAL: This is a 57-year-old female in no apparent distress at the time of my examination. HEENT: Head is atraumatic, normocephalic. Pupils are equal, round. Sclerae anicteric. Conjunctivae are clear. Mucous membranes of the mouth are moist. Neck is supple. There is no jugular venous distention. No carotid bruit is heard. LUNGS: Clear to auscultation no wheezes, rales or rhonchi. No chest wall tenderness is noted on palpation or with deep breathing. HEART: Regular rate and rhythm without murmurs, rubs or gallops. S1 and S2 heard. ABDOMEN: Soft, nontender. Bowel sounds are heard. No organomegaly noted. EXTREMITIES: No evidence of peripheral edema and no calf tenderness noted. VASCULAR: Radial and dorsalis pedis pulses palpated, no evidence of clubbing. NEUROLOGIC: Patient is awake, alert and oriented x3. Results 02/25/18 05:35 02/25/18 05:35 Cardiac Enzymes 02/25/18 02/25/18 02/25/18 Range/Units 05:35 05:35 05:35 WBC 4.8 (3.8-10.6) k/uL RBC 4.83 (3.80-5.40) m/uL Hgb 15.4 (11.4-16.0) gm/dL Hct 47.3 H (34.0-46.0) % MCV 97.9 (80.0-100.0) fL MCH 31.8 (25.0-35.0) pg MCHC 32.5 (31.0-37.0) g/dL RDW 13.2 (11.5-15.5) % Plt Count 218 (150-450) k/uL Neutrophils % 53 % Lymphocytes % 32 % Monocytes % 10 % Eosinophils % 1 % Basophils % 0 % Neutrophils # 2.5 (1.3-7.7) k/uL Lymphocytes # 1.5 (1.0-4.8) k/uL Monocytes # 0.5 (0-1.0) k/uL Eosinophils # 0.1 (0-0.7) k/uL Basophils # 0.0 (0-0.2) k/uL PT (9.0-12.0) sec INR (<1.2) APTT (22.0-30.0) sec D-Dimer (<0.60) mg/L FEU Sodium 141 (137-145) mmol/L Potassium 3.9 (3.5-5.1) mmol/L Chloride 101 (98-107) mmol/L Carbon Dioxide 20 L (22-30) mmol/L Anion Gap 20 mmol/L BUN 4 L (7-17) mg/dL Creatinine 0.60 (0.52-1.04) mg/dL Est GFR (CKD-EPI)AfAm >90 (>60 ml/min/1.73 sqM) Est GFR (CKD-EPI)NonAf >90 (>60 ml/min/1.73 sqM) Glucose 110 H (74-99) mg/dL Calcium 10.4 H (8.4-10.2) mg/dL Magnesium 2.1 (1.6-2.3) mg/dL Total Bilirubin 0.9 (0.2-1.3) mg/dL AST 320 H (14-36) U/L ALT 146 H (9-52) U/L Alkaline Phosphatase 319 H (38-126) U/L Total Creatine Kinase 43 (30-135) U/L CK-MB (CK-2) 0.4 (0.0-2.4) ng/mL CK-MB (CK-2) Rel Index 0.9 Troponin I <0.012 (0.000-0.034) ng/mL NT-Pro-B Natriuret Pep pg/mL Total Protein 7.9 (6.3-8.2) g/dL Albumin 4.7 (3.5-5.0) g/dL Lipase 287 (23-300) U/L TSH 2.650 (0.465-4.680) mIU/L 02/25/18 02/25/18 Range/Units 05:35 05:35 WBC (3.8-10.6) k/uL RBC (3.80-5.40) m/uL Hgb (11.4-16.0) gm/dL Hct (34.0-46.0) % MCV (80.0-100.0) fL MCH (25.0-35.0) pg MCHC (31.0-37.0) g/dL RDW (11.5-15.5) % Plt Count (150-450) k/uL Neutrophils % % Lymphocytes % % Monocytes % % Eosinophils % % Basophils % % Neutrophils # (1.3-7.7) k/uL Lymphocytes # (1.0-4.8) k/uL Monocytes # (0-1.0) k/uL Eosinophils # (0-0.7) k/uL Basophils # (0-0.2) k/uL PT 10.3 (9.0-12.0) sec INR 1.0 (<1.2) APTT 23.1 (22.0-30.0) sec D-Dimer 0.47 (<0.60) mg/L FEU Sodium (137-145) mmol/L Potassium (3.5-5.1) mmol/L Chloride (98-107) mmol/L Carbon Dioxide (22-30) mmol/L Anion Gap mmol/L BUN (7-17) mg/dL Creatinine (0.52-1.04) mg/dL Est GFR (CKD-EPI)AfAm (>60 ml/min/1.73 sqM) Est GFR (CKD-EPI)NonAf (>60 ml/min/1.73 sqM) Glucose (74-99) mg/dL Calcium (8.4-10.2) mg/dL Magnesium (1.6-2.3) mg/dL Total Bilirubin (0.2-1.3) mg/dL AST (14-36) U/L ALT (9-52) U/L Alkaline Phosphatase (38-126) U/L Total Creatine Kinase (30-135) U/L CK-MB (CK-2) (0.0-2.4) ng/mL CK-MB (CK-2) Rel Index Troponin I (0.000-0.034) ng/mL NT-Pro-B Natriuret Pep 73 pg/mL Total Protein (6.3-8.2) g/dL Albumin (3.5-5.0) g/dL Lipase (23-300) U/L TSH (0.465-4.680) mIU/L Coagulation 02/25/18 Range/Units 05:35 PT 10.3 (9.0-12.0) sec APTT 23.1 (22.0-30.0) sec CBC 02/25/18 Range/Units 05:35 WBC 4.8 (3.8-10.6) k/uL RBC 4.83 (3.80-5.40) m/uL Hgb 15.4 (11.4-16.0) gm/dL Hct 47.3 H (34.0-46.0) % Plt Count 218 (150-450) k/uL Comprehensive Metabolic Panel 02/25/18 Range/Units 05:35 Sodium 141 (137-145) mmol/L Potassium 3.9 (3.5-5.1) mmol/L Chloride 101 (98-107) mmol/L Carbon Dioxide 20 L (22-30) mmol/L BUN 4 L (7-17) mg/dL Creatinine 0.60 (0.52-1.04) mg/dL Glucose 110 H (74-99) mg/dL Calcium 10.4 H (8.4-10.2) mg/dL AST 320 H (14-36) U/L ALT 146 H (9-52) U/L Alkaline Phosphatase 319 H (38-126) U/L Total Protein 7.9 (6.3-8.2) g/dL Albumin 4.7 (3.5-5.0) g/dL Current Medications Generic Name Dose Route Start Last Admin Trade Name Freq PRN Reason Stop Dose Admin Heparin Sodium (Porcine) 0 unit 02/25/18 06:28 Heparin IV PER PROTOCOL PRN Low PTT Protocol Heparin Sodium/Sodium Chloride 500 mls @ 16.54 mls/hr 02/25/18 06:30 06:39 25,000 unit/ Sodium Chloride IV 12 units/kg/hr .Q24H [facility] 16.54 mls/hr Protocol Administration 12 UNITS/KG/HR Naloxone HCl 0.2 mg 02/25/18 06:48 Narcan IV Q2M PRN Opioid Reversal Non-Formulary Medication 1 cap 02/25/18 09:00 Amlodipine Besylate/Benazepril [Amlodipine Besylate/Benazepril 5-10 Mg] PO DAILY HARPER Intake and Output 02/24/18 02/25/18 02/25/18 22:59 06:59 14:59 Other: Weight 68.946 kg 02/25/18 05:35 02/25/18 05:35 Assessment and Plan Assessment: ASSESSMENT 1. Precordial chest pain. 2. Tachycardia 3. Hypertension 4. Hypothyroidism status post thyroidectomy secondary to thyroid cancer 5. Chronic daily alcohol abuse 6. Elevated liver enzymes, chronic PLAN Obtain 2-D echocardiogram and Doppler study to assess cardiac structure and function. Continue to obtain serial cardiac enzymes to rule out an acute coronary event. Apply nitropaste. Continue with heparin infusion until an acute coronary event has been ruled out. Then is can be discontinued. TSH checked and within acceptable range. Further evaluation of liver per medical team. Thank you kindly for this consultation, will continue to follow and make recommendations based on clinical course. The above impression and plan of care have been discussed and directed by the signing physician. Korin Whitten, nurse practitioner, acting as scribe for signing physician.
[2018-02-25] MEDS: NITROGLYCERIN OINT 1 INCH/GM PACKET TOPICAL SCH ×3 (10:09→20:17)
[2018-02-25] MEDS: LISINOPRIL 10 MG TAB PO SCH (10:09)
[2018-02-25] MEDS: amLODIPine 5 MG TAB PO SCH (10:09)
--- NOTE | 2018-02-25 11:12 | ECHOF ---
Referral Reason:cp MEASUREMENTS -------- HEIGHT: 154.9 cm WEIGHT: 68.9 kg BP: 172/91 RVIDd: 2.6 cm (< 3.3) IVSd: 1.1 cm (0.6 - 1.1) LVIDd: 3.4 cm (3.9 - 5.3) LVPWd: 1.1 cm (0.6 - 1.1) IVSs: 1.5 cm LVIDs: 2.2 cm LVPWs: 1.5 cm LA Diam: 2.6 cm (2.7 - 3.8) LAESV Index (A-L): 17.49 ml/m Ao Diam: 3.4 cm (2.0 - 3.7) AV Cusp: 2.3 cm (1.5 - 2.6) MV EXCURSION: 15.792 mm (> 18.000) MV EF SLOPE: 88 mm/s (70 - 150) EPSS: 0.6 cm MV E Monty: 0.63 m/s MV DecT: 150 ms MV A Monty: 0.92 m/s MV E/A Ratio: 0.68 FINDINGS -------- Resting tachycardia (HR>100bpm). This was a technically good study. The left ventricular size is normal. There is borderline concentric left ventricular hypertrophy. Overall left ventricular systolic function is normal with, an EF between 55 - 60 %. The right ventricle is normal in size. Normal LA size by volume 22+/-6 ml/m2. The right atrium is normal in size. There is mild aortic valve sclerosis. The mitral valve leaflets are mildly thickened. The tricuspid valve appears structurally normal. Trace/mild (physiologic) pulmonic regurgitation. The aortic root size is normal. IVC Not well visulized. There is no pericardial effusion. CONCLUSIONS -------- 1. Resting tachycardia (HR>100bpm). 2. This was a technically good study. 3. The left ventricular size is normal. 4. There is borderline concentric left ventricular hypertrophy. 5. Overall left ventricular systolic function is normal with, an EF between 55 - 60 %. 6. The right ventricle is normal in size. 7. Normal LA size by volume 22+/-6 ml/m2. 8. The right atrium is normal in size. 9. There is mild aortic valve sclerosis. 10. The mitral valve leaflets are mildly thickened. 11. The tricuspid valve appears structurally normal. 12. Trace/mild (physiologic) pulmonic regurgitation. 13. The aortic root size is normal. 14. IVC Not well visulized. 15. There is no pericardial effusion. WHARF HAND: Yuliana Hernandez RDCS
[2018-02-25 12:33] LABS: Creatine Kinase 34 U/L (30-135)
[2018-02-25 12:46] LABS: Creatine Kinase MB 0.3 ng/mL (0.0-2.4); Troponin I <0.012 ng/mL (0.000-0.034)
[2018-02-25] MEDS ORDERED: traZODone HCL 50 MG TAB PO PRN (14:40)
--- NOTE | 2018-02-25 14:43 | P.HPIM ---
History of Present Illness H&P Date: 02/25/18 Chief Complaint: chest pain 57-year-old female who presented to the emergency room with a chief complaint of chest pain. Patient states she went to bed yesterday and was feeling like her normal self. She woke up in the middle of the night with chest pain. She initially thought it was heartburn but she states the pain did not go away and she decided to come to the emergency room for further evaluation. She states the pain is midsternal and radiates across the left side of her chest and into her left shoulder. She denies nausea or vomiting. She does complain of a decreased appetite over the last 1-2 months and reports losing 8 pounds. She denies shortness of breath. Denies cough or congestion. Denies fevers. Denies lightheadedness or dizziness. The patient has a history of thyroid cancer, hypertension, and osteoarthritis. She also has a history of anxiety and depression. She has a history of cholecystectomy. She reports daily alcohol use and states the amount varies by the day. Chest x-ray: negative for acute process. Echocardiogram reveals EF of 55-60% Laboratory data: WBC 4.8. Hemoglobin 15.4. Platelet count 218. Sodium 141. Potassium 3.9. BUN 4. Creatinine 0.60. Glucose 110. Calcium 10.4. Magnesium 2.1. AST 320. ALT 146. Alkaline phosphatase 319. Lipase 287 BNP 73. Troponin: Negative 2 TSH: 2.650 The patient was admitted to the hospital under the care of Dr. Byrd to the observation unit. Review of Systems Those systems with pertinent positive or pertinent negative responses have been documented in the HPI Past Medical History Past Medical History: Cancer, Hypertension, Osteoarthritis (OA), Thyroid Disorder Additional Past Medical History / Comment(s): Thyroid cancer surgically removed , arthritis multiple joints, environmental sinus problems, iron deficiency anemia, past cellulitis R foot. History of Any Multi-Drug Resistant Organisms: None Reported Past Surgical History: Section, Cholecystectomy, Joint Replacement, Orthopedic Surgery Additional Past Surgical History / Comment(s): Gastric bypass, total L knee arthroplasty, parathyroidectomy, R hand benign tumor removed, colonoscopy- normal. Past Anesthesia/Blood Transfusion Reactions: No Reported Reaction Additional Past Anesthesia/Blood Transfusion Reaction / Comment(s): Pt has received blood in the past without reaction. Pt is clausterphobic. Smoking Status: Never smoker - Past Family History Father Family Medical History: Cancer, Diabetes Mellitus, Hypertension, Musculoskeletal Disorder, Neurologic Disorder Additional Family Medical History / Comment(s): Father of parkinson's dx at the age of 68yrs. He had skin cancer. Mother Family Medical History: Congestive Heart Failure (CHF), Hypertension Additional Family Medical History / Comment(s): Mother from CHF at the age of 61yrs. Medications and Allergies Home Medications Medication Instructions Recorded Confirmed Type Levothyroxine Sodium [Synthroid] 75 mcg PO DAILY 12/07/17 02/25/18 History Multivitamins, Thera [Multivitamin 1 tab PO DAILY 12/07/17 02/25/18 History (formulary)] amLODIPine BESYLATE/BENAZEPRIL 1 cap PO DAILY 12/07/17 02/25/18 History [amLODIPine BESYLATE/BENAZEPRIL 5-10 mg] traZODone HCL 50 mg PO HS PRN 02/25/18 02/25/18 History Allergies Allergy/AdvReac Type Severity Reaction Status Date / Time azithromycin Allergy Rash/Hives Verified 12/07/17 12:42 [From Zithromax Z-Rashaad] morphine Allergy Rapid Verified 12/07/17 12:42 Heart Rate Physical Exam Vitals: Vital Signs Temp Pulse Pulse Resp BP BP Pulse Ox 02/25/18 11:36 98.9 F 125 H 16 99/59 97 02/25/18 07:25 98.2 F 118 H 16 172/91 98 02/25/18 06:48 100 18 150/81 99 02/25/18 06:01 103 H 18 145/85 100 02/25/18 05:28 97.1 F L 146 H 22 138/99 99 Intake and Output 02/24/18 02/25/18 02/25/18 22:59 06:59 14:59 Other: Voiding Method Toilet Weight 68.946 kg 62 kg GENERAL: This is a 57-year-old female in no apparent distress at the time of examination. Pleasant and cooperative. HEENT: Head is atraumatic, normocephalic. Pupils are equal, round, and reactive to light. Sclerae anicteric. Conjunctivae are clear. Mucus membranes of the mouth are moist. Neck is supple. RESPIRATORY: Clear to ausculation. No wheezes, rales, or rhonchi. No use of accessory muscles. Patient maintaining oxygen saturation greater than 92%. No chest wall tenderness is noted on palpation or with deep breathing. CARDIOVASCULAR: Regular rate and rhythm. S1 and S2 noted. No systolic or diastolic murmur auscultated. No JVD noted. No S3 or S4 noted. GASTROINTESTINAL: No distention noted. Abdomen soft and round. Normal active bowel sounds auscultated x 4 quadrants. No pain or tenderness noted upon palpation. INTEGUMENTARY: No cyanosis. No jaundice. No rashes noted. No cellulitis noted. EXTREMITIES: 2+ peripheral pulses. No evidence of peripheral edema. No calf tenderness noted. NEUROLOGIC: Cranial nerves II-XII intact. PSYCHIATRIC: Awake, alert, and oriented X 3. Appropriate affect. Intact judgement and insight. Results CBC & Chem 7: 02/25/18 05:35 02/25/18 05:35 Labs: Abnormal Lab Results - Last 24 Hours (Table) 02/25/18 02/25/18 02/25/18 Range/Units 05:35 05:35 11:36 Hct 47.3 H (34.0-46.0) % APTT 52.8 H (22.0-30.0) sec Carbon Dioxide 20 L (22-30) mmol/L BUN 4 L (7-17) mg/dL Glucose 110 H (74-99) mg/dL Calcium 10.4 H (8.4-10.2) mg/dL AST 320 H (14-36) U/L ALT 146 H (9-52) U/L Alkaline Phosphatase 319 H (38-126) U/L Thrombosis Risk Factor Assmnt - Choose All That Apply Any of the Below Risk Factors Present?: Yes Each Factor Represents 1 point: Age 41-60 years, Obesity (BMI >25) Other Risk Factors: No Other congenital or acquired thrombophilia - If yes, enter type in comment: No Thrombosis Risk Factor Assessment Total Risk Factor Score: 2 Thrombosis Risk Factor Assessment Level: Low Risk Assessment and Plan Plan: ASSESSMENT: Chest pain with radiation into left shoulder and arm x 1 day, troponin negative x 2, rule out acute coronary syndrome Elevated LFTs and elevated alkaline phosphatase with history of cholecystectomy , CT scan 12/07/2017 reveals moderate fatty infiltration of liver, may be secondary to daily alcohol use or gallstone, US pending Hypertension History of thyroid cancer with surgical resection Anxiety, unspecified Depression, unspecified Daily alcohol use PLAN: Cardiology on consult. Appreciate recommendations and input Continue heparin drip per cardiology US of abdomen Home meds as appropriate Monitor labs Monitor vital signs and address as appropriate Further recommendations pending patient's course Nurse practitioner note has been reviewed by physician. Signing provider agrees with the documented findings, assessment, and plan of care.
--- NOTE | 2018-02-25 15:28 | US ---
EXAMINATION TYPE: US abdomen complete DATE OF EXAM: 02/25/2018 COMPARISON: CT 12/07/2017, US 2016 CLINICAL HISTORY: elevated LFTs. Elevated LFT's, hx of cholecystectomy EXAM MEASUREMENTS: Liver Length: Enlarged Gallbladder Wall: surgically absent CBD: 0.7 cm Spleen: 8.3 cm Right Kidney: 9.3 x 4.3 x 4.7 cm Left Kidney: 9.7 x 4.7 x 5.0 cm Pancreas: obscured by overlying midline bowel gas Liver: somewhat heterogeneous with increased echogenicity, no definite lesions seen at this time, sc anned intercostally, limited by rib shadowing Gallbladder: surgically absent Evidence for sonographic Verdugo's sign: yes CBD: visualized portions wnl, limited by overlying bowel Spleen: visualized portions wnl, limited by overlying bowel gas Right Kidney: wnl Left Kidney: wnl and the kidneys show normal cortical medullary differentiation, no hydronephrosis o r pathologic calcification, no cortical mass Upper IVC: wnl Abd Aorta: visualized portions wnl, prox and mid portions limited by overlying midline bowel gas There is no ascites. IMPRESSION: Hepatic steatosis versus hepatocellular disease with hepatomegaly. Postcholecystectomy. P ositive sonographic Verdugo's sign. Exam is somewhat limited.
[2018-02-25 19:43] LABS: Creatine Kinase 35 U/L (30-135)
[2018-02-25 19:51] LABS: Creatine Kinase MB <0.2 ng/mL (0.0-2.4)
[2018-02-26] MEDS: NITROGLYCERIN OINT 1 INCH/GM PACKET TOPICAL SCH ×2 (00:33→06:37)
[2018-02-26] MEDS ORDERED: LEVOTHYROXINE 75 MCG TAB PO SCH (06:30)
[2018-02-26 07:44] LABS: Basophils % (A) 0 %; Eosinophils # (A) 0.1 k/uL (0-0.7); Eosinophils % (A) 2 %; HCT 35.3 % (34.0-46.0); Lymphocytes % (A) 31 %; MCH 33.6 pg (25.0-35.0); MCHC 33.7 g/dL (31.0-37.0); MCV 99.8 fL (80.0-100.0); Mean Platelet Volume 7.5; Monocytes # (A) 0.3 k/uL (0-1.0); Monocytes % (A) 11 %; Neutrophils # (A) 1.6 k/uL (1.3-7.7); Neutrophils % (A) 52 %; Platelet Count 124 k/uL (150-450); RBC 3.54 m/uL (3.80-5.40); RDW 13.2 % (11.5-15.5)
[2018-02-26 07:51] LABS: HGB 11.9 gm/dL (11.4-16.0)
[2018-02-26] MEDS ORDERED: ESCITALOPRAM 10 MG TAB PO SCH (09:15)
--- NOTE | 2018-02-26 11:21 | P.PN ---
Subjective Progress Note Date: 02/26/18 57-year-old female who presented to the emergency room with a chief complaint of chest pain. Patient states she went to bed yesterday and was feeling like her normal self. She woke up in the middle of the night with chest pain. She initially thought it was heartburn but she states the pain did not go away and she decided to come to the emergency room for further evaluation. She states the pain is midsternal and radiates across the left side of her chest and into her left shoulder. She denies nausea or vomiting. She does complain of a decreased appetite over the last 1-2 months and reports losing 8 pounds. She denies shortness of breath. Denies cough or congestion. Denies fevers. Denies lightheadedness or dizziness. The patient has a history of thyroid cancer, hypertension, and osteoarthritis. She also has a history of anxiety and depression. She has a history of cholecystectomy. She reports daily alcohol use and states the amount varies by the day. Chest x-ray: negative for acute process. Echocardiogram reveals EF of 55-60% Laboratory data: WBC 4.8. Hemoglobin 15.4. Platelet count 218. Sodium 141. Potassium 3.9. BUN 4. Creatinine 0.60. Glucose 110. Calcium 10.4. Magnesium 2.1. AST 320. ALT 146. Alkaline phosphatase 319. Lipase 287 BNP 73. Troponin: Negative 2 TSH: 2.650 The patient was admitted to the hospital under the care of Dr. Byrd to the observation unit. 02/26/2018 Patient evaluated at the bedside on rounds with Dr. Byrd. Patient underwent abdominal ultrasound yesterday revealing hepatic steatosis versus hepatocellular disease with hepatomegaly. Postcholecystectomy. Positive sonographic Verdugo sign. Limited exam. The patient currently denies chest pain or pressure. Denies shortness of breath. Patient is scheduled for stress test this morning. She remains on a heparin drip per cardiology. Dr. Byrd discussed abstaining from alcohol with patient. Patient acknowledges that she consumes too much alcohol and often binge drinks. She states her and her have recently discussed cutting down on their alcohol use together. Objective - Vital Signs Vital signs: Vital Signs Temp 98.3 F 02/26/18 07:24 Pulse 88 02/26/18 08:00 Resp 16 02/26/18 08:00 BP 140/87 02/26/18 07:24 Pulse Ox 99 02/26/18 07:24 Intake & Output 02/25/18 02/26/18 02/26/18 18:59 06:59 18:59 Intake Total 118 Balance 118 Weight 62 kg Intake: Oral 118 Other: Voiding Method Toilet Toilet Toilet - Labs CBC & Chem 7: 02/26/18 06:21 02/25/18 05:35 Labs: Abnormal Lab Results - Last 24 Hours (Table) 02/25/18 02/26/18 02/26/18 Range/Units 11:36 06:21 06:21 WBC 3.0 L (3.8-10.6) k/uL RBC 3.54 L (3.80-5.40) m/uL Plt Count 124 L (150-450) k/uL APTT 52.8 H 55.2 H (22.0-30.0) sec Assessment and Plan Plan: ASSESSMENT: Chest pain with radiation into left shoulder and arm x 1 day, troponin negative x 3, rule out acute coronary syndrome Elevated LFTs and elevated alkaline phosphatase with history of cholecystectomy , CT scan 12/07/2017 reveals moderate fatty infiltration of liver, may be secondary to daily alcohol use or gallstone, abdominal US revealing hepatic steatosis versus hepatocellular disease with hepatomegaly Hypertension History of thyroid cancer with surgical resection Anxiety, unspecified Depression, unspecified Daily alcohol use PLAN: Cardiology on consult. Appreciate recommendations and input Continue heparin drip per cardiology Patient to undergo stress test today Begin Lexapro 10mg daily Encourage abstinence from ETOH Repeat LFTs on an outpatient basis Home meds as appropriate Monitor labs Monitor vital signs and address as appropriate Further recommendations pending patient's course Patient may be discharged home this afternoon if cleared by cardiology Nurse practitioner note has been reviewed by physician. Signing provider agrees with the documented findings, assessment, and plan of care.
[2018-02-26 11:58] VITALS: BP 146/91; PULSE 87; TEMP 98.4
[2018-02-26] MEDS ORDERED: MULTIVITAMINS, THERA 1 EACH TAB PO SCH (12:00)
[2018-02-26] MEDS: LISINOPRIL 10 MG TAB PO SCH (12:02)
[2018-02-26] MEDS: amLODIPine 5 MG TAB PO SCH (12:02)
--- NOTE | 2018-02-26 12:05 | ECHOS ---
STRESS ECHOCARDIOGRAM INDICATIONS: Chest pain. BASELINE HEART RATE: 74 BASELINE BLOOD PRESSURE: 128/77 MAXIMUM HEART RATE: 172 MAXIMUM BLOOD PRESSURE: 207/91 85% MPHR: 139 100% MPHR: 163 METS: 4.6 MAXIMUM STAGE REACHED: 1 TOTAL EXERCISE TIME: 3:00 CLINICAL INFORMATION: Baseline EKG shows sinus rhythm, normal axis, normal intervals. Patient exercised on Miguelangel protocol for a total of 3 minutes, achieving 4 METS, 100% of predicted maximal heart rate without chest pain or diagnostic ST-segment depression. The test was stopped secondary to fatigue and tiredness. Baseline echo shows normal left ventricular size wall motion systolic function. Postexercise there is normal hyperdynamic response of all segments of myocardium noted. CONCLUSION: 1. Poor exercise tolerance. 2. Negative stress test by EKG criteria. 3. Negative stress echo. MMODL / IJN: [id number] /
[2018-02-26 13:34] VITALS: BMI 25.8
--- NOTE | 2018-02-26 13:47 | P.DS ---
Providers Date of admission: 02/25/18 06:48 Expected date of discharge: 02/26/18 Attending physician: Jarrod Byrd Consults: 02/25/18 06:49 Consult Physician Urgent Consulting Provider: Osmar Cabrera Consult Reason/Comments: Unstable angina Do you want consulting provider notified?: Yes Primary care physician: Jarrod Byrd [facility] Course: 57-year-old female who presented to the emergency room with a chief complaint of chest pain. Patient states she went to bed yesterday and was feeling like her normal self. She woke up in the middle of the night with chest pain. She initially thought it was heartburn but she states the pain did not go away and she decided to come to the emergency room for further evaluation. She states the pain is midsternal and radiates across the left side of her chest and into her left shoulder. She denies nausea or vomiting. She does complain of a decreased appetite over the last 1-2 months and reports losing 8 pounds. She denies shortness of breath. Denies cough or congestion. Denies fevers. Denies lightheadedness or dizziness. The patient has a history of thyroid cancer, hypertension, and osteoarthritis. She also has a history of anxiety and depression. She has a history of cholecystectomy. She reports daily alcohol use and states the amount varies by the day. Chest x-ray: negative for acute process. Echocardiogram reveals EF of 55-60% Laboratory data: WBC 4.8. Hemoglobin 15.4. Platelet count 218. Sodium 141. Potassium 3.9. BUN 4. Creatinine 0.60. Glucose 110. Calcium 10.4. Magnesium 2.1. AST 320. ALT 146. Alkaline phosphatase 319. Lipase 287 BNP 73. Troponin: Negative 2 TSH: 2.650 The patient was admitted to the hospital under the care of Dr. Byrd to the observation unit. Patient underwent abdominal ultrasound revealing hepatic steatosis versus hepatocellular disease with hepatomegaly. Postcholecystectomy. Positive sonographic Verdugo sign. Limited exam. Dr. Byrd discussed abstaining from alcohol with patient. Patient acknowledges that she consumes too much alcohol and often binge drinks. She states her and her have recently discussed cutting down on their alcohol use together. Patient was started on Lexapro 10mg daily per Dr. Byrd per patient request. She underwent stress test which was negative for ischemia. She was cleared for discharge from a cardiac standpoint. She is to follow up with Dr. Byrd on an outpatient basis. Will repeat LFTs at follow up appointment. Patient encouraged to abstain from ETOH. DISCHARGE DIAGNOSIS: Chest pain with radiation into left shoulder and arm x 1 day, troponin negative x 3, acute coronary syndrome ruled out Elevated LFTs and elevated alkaline phosphatase with history of cholecystectomy , CT scan 12/07/2017 reveals moderate fatty infiltration of liver, may be secondary to daily alcohol use or gallstone, abdominal US revealing hepatic steatosis versus hepatocellular disease with hepatomegaly Hypertension History of thyroid cancer with surgical resection Anxiety, unspecified Depression, unspecified Daily alcohol use Nurse practitioner note has been reviewed by physician. Signing provider agrees with the documented findings, assessment, and plan of care. Patient Condition at Discharge: Stable Plan - Discharge Summary Discharge Rx Participant: No New Discharge Prescriptions: New Escitalopram [Lexapro] 10 mg PO DAILY #30 tab Continue Multivitamins, Thera [Multivitamin (formulary)] 1 tab PO DAILY amLODIPine BESYLATE/BENAZEPRIL [amLODIPine BESYLATE/BENAZEPRIL 5-10 mg] 1 cap PO DAILY Levothyroxine Sodium [Synthroid] 75 mcg PO DAILY traZODone HCL 50 mg PO HS PRN PRN Reason: Insomnia Discharge Medication List Levothyroxine Sodium [Synthroid] 75 mcg PO DAILY 12/07/17 [History] Multivitamins, Thera [Multivitamin (formulary)] 1 tab PO DAILY 12/07/17 [History ] amLODIPine BESYLATE/BENAZEPRIL [amLODIPine BESYLATE/BENAZEPRIL 5-10 mg] 1 cap PO DAILY 12/07/17 [History] traZODone HCL 50 mg PO HS PRN 02/25/18 [History] Escitalopram [Lexapro] 10 mg PO DAILY #30 tab 02/26/18 [Rx] Follow up Appointment(s)/Referral(s): Jarrod Byrd DO [Primary Care Provider] - 10 Days Activity/Diet/Wound Care/Special Instructions: Avoid alcohol use. Repeat liver function tests at follow up appointment with Dr. Byrd Discharge Disposition: HOME SELF-CARE
--- NOTE | 2018-02-26 14:00 | P.PN ---
Subjective Progress Note Date: 02/26/18 Mrs. Milton is a pleasant 57-year-old female past medical history significant for hypertension, thyroid cancer s/p thyroidectomy and chronic daily alcohol use. She denies history of coronary artery disease and has never seen a operations and maintenance technican for any reason. We have been asked to see her in consultation for chest pain. She states she woke up yesterday feeling a pressure type pain in her chest starting in the mid-sternal region radiating over to the left shoulder and axilla. The pain is associated with shortness of breath, palpitations and nausea. She also described increased fatigue and loss of appetite that has been slowly ongoing for the last month or so. The pressure in her chest has been ongoing since admission with no specific alleviating or aggravating factors. The pain intensity has subsided but the pressure still there in the chest. EKG reveals sinus tachycardia with bi-atrial enlargement, heart rate 117. Telemetry tracings have been unremarkable for arrhythmia other than tachycardia. Chest xray negative for an acute cardiopulmonary process. Laboratory data reviewed, hemoglobin 15.4, platelets 218, potassium 3.9, magnesium 2.1, AST 320, PLT 146, alk phos 319, cardiac enzymes negative 1, TSH 2.65. Current cardiac medications include amlodipine/benazepril 5/10 mg daily. 02/26/2018 Patient was seen and examined this morning rested comfortably in bed. Cardiac enzymes have come out to be negative 3. An acute coronary event has been ruled out. Echocardiogram obtained yesterday reveals preserved left ventricular systolic function with ejection fraction 55-60%. She denies any ongoing symptoms of chest pain. She continues to feel generalized weakness and fatigue. Ultrasound of the abdomen obtained yesterday revealed hepatic steatosis versus hepatocellular disease with hepatomegaly with a positive sonographic Verdugo sign. Blood pressure 140/87 heart rate 88 afebrile maintaining oxygen saturation on room air. Objective - Vital Signs Vital signs: Vital Signs Temp 98.4 F 02/26/18 11:56 Pulse 87 02/26/18 12:00 Resp 16 02/26/18 12:00 BP 146/91 02/26/18 11:56 Pulse Ox 98 02/26/18 11:56 Intake & Output 02/25/18 02/26/18 02/26/18 18:59 06:59 18:59 Intake Total 118 Balance 118 Weight 62 kg 62 kg Intake: Oral 118 Other: Voiding Method Toilet Toilet Toilet - Exam GENERAL: Well-appearing, well-nourished and in no acute distress. NECK: Supple without JVD or thyromegaly. LUNGS: Breath sounds clear to auscultation bilaterally. Respiration equal and unlabored. No wheezes, rales or rhonchi. HEART: Regular rate and rhythm without murmurs, rubs or gallops. S1 and S2 heard. EXTREMITIES: Normal range of motion, no edema. No clubbing or cyanosis. Peripheral pulses intact and strong. - Labs CBC & Chem 7: 02/26/18 06:21 02/25/18 05:35 Labs: Abnormal Lab Results - Last 24 Hours (Table) 02/26/18 02/26/18 Range/Units 06:21 06:21 WBC 3.0 L (3.8-10.6) k/uL RBC 3.54 L (3.80-5.40) m/uL Plt Count 124 L (150-450) k/uL APTT 55.2 H (22.0-30.0) sec Assessment and Plan Assessment: ASSESSMENT 1. Precordial chest pain. 2. Tachycardia 3. Hypertension 4. Hypothyroidism status post thyroidectomy secondary to thyroid cancer 5. Chronic daily alcohol abuse 6. Elevated liver enzymes, chronic PLAN Discontinue heparin infusion and Nitropaste. Proceed with stress echocardiogram to assess for stress-induced cardiac ischemia. If stress test is negative she is stable from a cardiac perspective. Follow-up with PCP upon discharge. The above impression and plan of care have been discussed and directed by the signing physician. Korin Whitten, nurse practitioner, acting as scribe for signing physician.
== END 2018-02-26 16:02 | disposition home or self-care (01) ==
LOC: EC 05:27 → 3OBS 06:48
PROVIDERS: ADMIT Family Medicine; ATTEND Family Medicine
DX: R07.89 Other chest pain (principal); I10 Essential (primary) hypertension; Z90.49 Acquired absence of other specified parts of digestive tract; F41.9 Anxiety disorder, unspecified; F32.9 Major depressive disorder, single episode, unspecified; R11.0 Nausea; E03.9 Hypothyroidism, unspecified; R05 Cough; F10.10 Alcohol abuse, uncomplicated; R06.02 Shortness of breath; R00.2 Palpitations; R63.0 Anorexia; R53.83 Other fatigue; R07.2 Precordial pain; R00.0 Tachycardia, unspecified; E89.0 Postprocedural hypothyroidism; R74.8 Abnormal levels of other serum enzymes; R79.89 Other specified abnormal findings of blood chemistry; M19.90 Unspecified osteoarthritis, unspecified site; D50.9 Iron deficiency anemia, unspecified; Z85.850 Personal history of malignant neoplasm of thyroid; Z79.899 Other long term (current) drug therapy; Z79.890 Hormone replacement therapy; Z88.5 Allergy status to narcotic agent; Z88.1 Allergy status to other antibiotic agents; Z98.84 Bariatric surgery status; Z80.8 Family history of malignant neoplasm of other organs or systems; Z83.3 Family history of diabetes mellitus; Z82.49 Family history of ischemic heart disease and other diseases of the circulatory system; Z82.0 Family history of epilepsy and other diseases of the nervous system; E66.9 Obesity, unspecified; Z68.25 Body mass index [BMI] 25.0-25.9, adult
CPT/HCPCS: 99285 ×2; 96376 ×2; 96365 ×2; 96366 ×2; 96375; 36415; 93005; 93306; 93351; 85379; 83880; 80053; 82550; 82553; 83690; 83735; 84443; 84484; 85025 ×2; 85610; 85730 ×2; 71046; 76700; G0378 ×2; J2060; J1644 ×2

== ENCOUNTER 2018-04-18 15:59 | Emergency (ER) | payer OTHER, BC ==
[2018-04-18 16:08] VITALS: RESP 18
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
[2018-04-18 17:38] VITALS: BP 111/68; PULSE 68; TEMP 97.8
== END 2018-04-18 17:40 | disposition home or self-care (01) ==
LOC: EC 15:59
DX: S00.81XA Abrasion of other part of head, initial encounter (principal); G31.9 Degenerative disease of nervous system, unspecified; M47.812 Spondylosis without myelopathy or radiculopathy, cervical region; M53.82 Other specified dorsopathies, cervical region; I10 Essential (primary) hypertension; E89.0 Postprocedural hypothyroidism; Z79.899 Other long term (current) drug therapy; Z88.1 Allergy status to other antibiotic agents; Z88.5 Allergy status to narcotic agent; Z85.850 Personal history of malignant neoplasm of thyroid; V48.5XXA Car driver injured in noncollision transport accident in traffic accident, initial encounter; Y93.89 Activity, other specified; Y92.410 Unspecified street and highway as the place of occurrence of the external cause
CPT/HCPCS: 70450; 72125; 99284

== ENCOUNTER → 2020-09-15 | Outpatient (CLI) | payer BC, OTHER ==
--- NOTE | 2020-09-15 15:35 | XR ---
EXAMINATION TYPE: XR chest 2V DATE OF EXAM: 09/15/2020 COMPARISON: Prior chest x-ray 02/25/2018 HISTORY: Cough TECHNIQUE: Frontal and lateral views of the chest are obtained. FINDINGS: There is no focal air space opacity, pleural effusion, or pneumothorax seen. The cardiac silhouette size is within normal limits. There is persistent elevation of right hemidiaphragm. Surgic al clips are present right upper quadrant. Biapical pleural thickening is unchanged. The osseous str uctures are intact. IMPRESSION: No acute cardiopulmonary process.
== END | disposition home or self-care (01) ==
LOC: RADXRMAIN 12:13
PROVIDERS: ATTEND Physician Assistant
DX: R05 Cough (principal)
CPT/HCPCS: 71046

== ENCOUNTER → 2023-03-15 | Outpatient (CLI) | payer BC ==
--- NOTE | 2023-03-16 19:41 | MM ---
Reason for Exam: Screening (asymptomatic). Last mammogram was performed 6 year(s) and 4 month(s) ago. Patient History: Menarche at age 12. First Full-Term at age 28. Postmenopausal. Other cancer, age 30. Patient used Hormonal Contraceptives for 10 years. Risk Values: Edith 5 year model risk: 1.7%. NCI Lifetime model risk: 7.7%. Prior Study Comparison: 11/09/2016 Bilateral Screening Mammogram, [facility]. 11/23/2016 Right Diagnostic Mammogram, [facility]. 07/11/2017 Right Diagnostic Mammogram, [facility]. Tissue Density: There are scattered fibroglandular densities. Findings: Analyzed By CAD. Benign vascular calcifications on both sides. There is no suspicious group of microcalcifications or new suspicious mass in either breast. Overall Assessment: Benign, BI-RAD 2 Management: Screening Mammogram of both breasts in 1 year. . Patient should continue monthly self-breast exams. A clinical breast exam by your physician is recommended on an annual basis. This exam should not preclude additional follow-up of suspicious palpable abnormalities. Note on Edith scores and lifetime risk: 1. A Edith score greater than 3% is considered moderate risk. If this is the case, consider specialist referral to assess eligibility for a risk reducing agent. 2. If overall lifetime risk for the development of breast cancer is 20% or higher, the patient may qualify for future screening with alternating mammogram and breast MRI. Electronically signed and approved by: Rosalinda Franklin M.D. Radiologist
== END | disposition home or self-care (01) ==
LOC: RADMAMWWP 15:11
PROVIDERS: ATTEND Family Medicine
DX: Z12.31 Encounter for screening mammogram for malignant neoplasm of breast (principal); Z78.0 Asymptomatic menopausal state
CPT/HCPCS: 77063; 77067

== ENCOUNTER → 2023-03-29 | Outpatient (CLI) | payer BC ==
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
== END | disposition home or self-care (01) ==
LOC: RADBDWWP 10:32
PROVIDERS: ATTEND Family Medicine
DX: M81.0 Age-related osteoporosis without current pathological fracture (principal); M85.89 Other specified disorders of bone density and structure, multiple sites; Z78.0 Asymptomatic menopausal state
CPT/HCPCS: 77080

== ENCOUNTER 2023-04-05 08:48 | Day surgery (SDC) | payer BC ==
[2023-04-04 08:32] VITALS: BMI 29.5
[2023-04-05 09:13] VITALS: RESP 16; TEMP 97.4
[2023-04-05] MEDS ORDERED: LACTATED RINGERS 1,000 ML IV ONE ×2 (09:28)
[2023-04-05] MEDS ORDERED: PROPOFOL 10 MG/ML 20 ML VIAL IV ONE (09:48)
--- NOTE | 2023-04-05 09:51 | P.GSHP ---
History of Present Illness H&P Date: 04/05/23 Chief Complaint: Screening colonoscopy This is a 62-year-old female presents today for screening colonoscopy. Patient denies a significant GI bleed. He states her last colonoscopy approximately 8 years ago. Past Medical History Past Medical History: Cancer, Hypertension, Osteoarthritis (OA), Thyroid Disorder Additional Past Medical History / Comment(s): Thyroid cancer surgically removed, arthritis multiple joints, environmental sinus problems, iron deficiency anemia, History of Any Multi-Drug Resistant Organisms: None Reported Past Surgical History: Bariatric Surgery, Section, Cholecystectomy, Joint Replacement, Orthopedic Surgery Additional Past Surgical History / Comment(s): Gastric bypass, total L knee arthroplasty, parathyroidectomy, R hand benign tumor removed, colonoscopy- normal. Past Anesthesia/Blood Transfusion Reactions: No Reported Reaction Additional Past Anesthesia/Blood Transfusion Reaction / Comment(s): Pt has received blood in the past without reaction. Pt is claustrophobic. Smoking Status: Never smoker - Past Family History Father Family Medical History: Cancer, Diabetes Mellitus, Hypertension, Musculoskeletal Disorder, Neurologic Disorder Additional Family Medical History / Comment(s): Father of parkinson's dx at the age of 68yrs. He had skin cancer. Mother Family Medical History: Congestive Heart Failure (CHF), Hypertension Additional Family Medical History / Comment(s): Mother from CHF at the age of 61yrs. Medications and Allergies Home Medications Medication Instructions Recorded Confirmed Type Levothyroxine Sodium [Synthroid] 75 mcg PO DAILY 12/07/17 04/05/23 History Multivitamins, Thera [Multivitamin 1 tab PO DAILY 12/07/17 04/05/23 History (formulary)] Naproxen Sodium [Aleve] 220 mg PO DAILY 04/04/23 04/05/23 History Vit C/E/Zn/Coppr/Lutein/Zeaxan 1 each PO DAILY 04/04/23 04/05/23 History [Preservision Areds 2 Softgel] amLODIPine BESYLATE/BENAZEPRIL 1 cap PO DAILY 04/04/23 04/05/23 History [amLODIPine BESYLATE/BENAZEPRIL 5-20 mg] Allergies Allergy/AdvReac Type Severity Reaction Status Date / Time azithromycin Allergy Rash/Hives Verified 04/05/23 09:07 [From Zithromax Z-Rashaad] morphine Allergy Rapid Verified 04/05/23 09:07 Heart Rate Surgical - Exam Vital Signs Temp Pulse Resp BP Pulse Ox 97.4 F L 113 H 16 153/84 100 04/05/23 09:11 04/05/23 09:11 04/05/23 09:11 04/05/23 09:11 04/05/23 09:11 - General well developed, well nourished, no distress - Eyes PERRL - ENT normal pinna - Neck no masses - Respiratory normal expansion - Cardiovascular Rhythm: regular - Abdomen Abdomen: soft, non tender Assessment and Plan Assessment: We'll perform screening colonoscopy.
--- NOTE | 2023-04-05 10:06 | P.OP ---
Date of Procedure: 04/05/23 Preoperative Diagnosis: Screening colonoscopy Postoperative Diagnosis: Mild diverticulosis Procedure(s) Performed: Colonoscopy Anesthesia: MAC Surgeon: Charles Lieberman Pathology: none sent Condition: stable Disposition: PACU Description of Procedure: The patient's placed on the endoscopy table in the lateral position she received IV sedation. Digital rectal exam was performed. The anus or colon. The ileocecal valve was visualized. The cecum, ascending and transverse colon appeared normal. In the descending and sigmoid: Mild diverticular changes. The scope was then brought back the rectum and this appeared normal. Scope withdrawn for patient.
[2023-04-05 10:21] VITALS: BP 104/63; PULSE 90
== END 2023-04-05 10:40 | disposition home or self-care (01) ==
LOC: ORWHC2ENDO 08:48
PROVIDERS: ATTEND Surgery
DX: Z12.11 Encounter for screening for malignant neoplasm of colon (principal); K57.30 Diverticulosis of large intestine without perforation or abscess without bleeding; I10 Essential (primary) hypertension; M19.90 Unspecified osteoarthritis, unspecified site; E07.9 Disorder of thyroid, unspecified; D50.9 Iron deficiency anemia, unspecified; Z85.850 Personal history of malignant neoplasm of thyroid; Z90.49 Acquired absence of other specified parts of digestive tract; Z98.890 Other specified postprocedural states; Z98.84 Bariatric surgery status; Z98.891 History of uterine scar from previous surgery; Z83.3 Family history of diabetes mellitus; Z82.49 Family history of ischemic heart disease and other diseases of the circulatory system; Z79.890 Hormone replacement therapy; Z79.899 Other long term (current) drug therapy; Z88.1 Allergy status to other antibiotic agents; Z88.5 Allergy status to narcotic agent
CPT/HCPCS: 45378; J2704

== ENCOUNTER → 2025-02-25 | Outpatient (CLI) | payer BC ==
--- NOTE | 2025-02-26 07:30 | MM ---
Reason for Exam: Screening (asymptomatic). Last mammogram was performed 1 year(s) and 11 month(s) ago. Patient History: Menarche at age 12. First Full-Term at age 28. Postmenopausal. Other cancer, age 30. Patient used Hormonal Contraceptives for 10 years. Risk Values: Edith 5 year model risk: 1.8%. NCI Lifetime model risk: 7.2%. Prior Study Comparison: 11/23/2016 Right Diagnostic Mammogram, [facility]. 07/11/2017 Right Diagnostic Mammogram, [facility]. 03/15/2023 Bilateral MG 3D screening mammo w/cad, [facility]. Tissue Density: There are scattered areas of fibroglandular density. Findings: Analyzed By CAD. There is no suspicious group of microcalcifications or new suspicious mass in either breast. Overall Assessment: Negative, BI-RAD 1 Management: Screening Mammogram of both breasts in 1 year. . Patient should continue monthly self-breast exams. A clinical breast exam by your physician is recommended on an annual basis. This exam should not preclude additional follow-up of suspicious palpable abnormalities. Note on Edith scores and lifetime risk: 1. A Edith score greater than 3% is considered moderate risk. If this is the case, consider specialist referral to assess eligibility for a risk reducing agent. 2. If overall lifetime risk for the development of breast cancer is 20% or higher, the patient may qualify for future screening with alternating mammogram and breast MRI. [facility], , 02/26/2025 7:27 AM. Electronically signed and approved by: Tee William M.D. Radiologis
== END | disposition home or self-care (01) ==
LOC: RADMAMWWP 16:09
PROVIDERS: ATTEND Family Medicine
DX: Z12.31 Encounter for screening mammogram for malignant neoplasm of breast (principal); R92.323 Mammographic fibroglandular density, bilateral breasts; Z78.0 Asymptomatic menopausal state; Z92.0 Personal history of contraception
CPT/HCPCS: 77067